=== PATIENT | female | born 1945 | race Caucasian/White ===

== ENCOUNTER 2021-08-15 14:02 | Emergency (ER) | payer MEDICARE ==
[~2021-08-15] VITALS: Ht 154.9 cm; Wt 77.1 kg
[~2021-08-15 14:02] MED LIST: ASPIRIN EC81 MG PO; CALCIUM600 MG PO; CIPRO500 MG PO; CYMBALTA20 MG PO; DAILY VITAMIN1 EAC2 PO; HYOSCYAMINE0.125 MG PO; LEXAPRO20 MG PO; LIPITOR40 MG PO; LISINOPRIL5 MG PO; MONTELUKAST SOD10 MG PO; NORCO 5-325 TA1 EACH PO; OMEPRAZOLE20 MG PO; PAROXETINE HCL40 MG PO; PROTONIX20 MG PO; PYRIDIUM200 MG PO; VITAMIN D250000 UNIT PO; VITAMIN D31000 UNI1 PO; WELLBUTRIN SR100 MG PO
[2021-08-15] MEDS ORDERED: BUPROPION HCL100 M1 PO (14:30)
[2021-08-15] MEDS ORDERED: FAMOTIDINE20 MG PO (14:31)
[2021-08-15] MEDS ORDERED: PANTOPRAZOLE SO40 MG PO (14:48)
[2021-08-15] MEDS ORDERED: ONDANSETRON ODT8 MG PO (16:58)
== END 2021-08-15 17:22 | disposition home or self-care (01) ==
LOC: ED 14:02
DX: K29.00 Acute gastritis without bleeding (principal); Z88.2 Allergy status to sulfonamides; Z88.8 Allergy status to other drugs, medicaments and biological substances; Z91.040 Latex allergy status; Z79.899 Other long term (current) drug therapy
CPT/HCPCS: 36415; 80053; 81001; 83690; 85025; 96374; 99284-25; J2405

== ENCOUNTER 2021-08-17 19:32 | Emergency (ER) | payer MEDICARE ==
[~2021-08-17] VITALS: Ht 154.9 cm; Wt 81.7 kg
[~2021-08-17 19:32] MED LIST changes: +BUPROPION HCL100 M1 PO; +FAMOTIDINE20 MG PO; +ONDANSETRON ODT8 MG PO; +PANTOPRAZOLE SO40 MG PO
--- OUTSIDE RECORDS SUMMARY | 2021-08-17 19:38 | XMS ---
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 Loly has no Care Guidelines for this patient. Claudia VISIT COUNT (12 MO.) [facility] NOTE: Visits indicate total known visits. ED/C VISIT TRACKING (12 MO.) [facility] COMPLAINT: - ABDOMINAL PAIN 08/15/2021 14:03 [facility] TYPE: Emergency COMPLAINT: - VOMITING, ABD PAIN INPATIENT VISIT TRACKING (12 MO.) No inpatient visits to display in this time frame [email or web address]
[2021-08-17] MEDS ORDERED: FAMOTIDINE20 MG PO (19:57)
[2021-08-17] MEDS ORDERED: ONDANSETRON ODT4 MG PO (23:03)
== END 2021-08-17 23:46 | disposition home or self-care (01) ==
LOC: ED 19:32
DX: R10.11 Right upper quadrant pain (principal); R10.12 Left upper quadrant pain; Z88.2 Allergy status to sulfonamides; Z88.8 Allergy status to other drugs, medicaments and biological substances; Z91.040 Latex allergy status; Z88.1 Allergy status to other antibiotic agents; Z79.899 Other long term (current) drug therapy
CPT/HCPCS: 36415; 74177; 80053; 83605; 83690; 85025; 96375; 96376; 99284-25; A9270; J2270; J2405; J7030

== ENCOUNTER 2021-08-18 21:06 | Inpatient (IN) | payer MEDICARE ==
[~2021-08-18] VITALS: Ht 154.9 cm; Wt 84.5 kg
[~2021-08-18 21:06] MED LIST changes: +ONDANSETRON ODT4 MG PO
--- OUTSIDE RECORDS SUMMARY | 2021-08-18 21:12 | XMS ---
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 Claudia VISIT COUNT (12 MO.) 3 [facility] TOTAL 3 NOTE: Visits indicate total known visits. ED/UCC VISIT TRACKING (12 MO.) 08/18/2021 21:06 [facility] [place] TYPE: Emergency COMPLAINT: - ABDOMINAL PAIN 08/17/2021 19:32 [facility] [place] TYPE: Emergency COMPLAINT: - ABDOMINAL PAIN 08/15/2021 14:03 [facility] [place] TYPE: Emergency COMPLAINT: - VOMITING, ABD PAIN INPATIENT VISIT TRACKING (12 MO.) No inpatient visits to display in this time frame [email or web address]
--- NOTE | 2021-08-19 05:02 | NUR ---
PATIENT ARRIVED TO THE FLOOR VIA STRETCHER. PATIENT MOVE FROM STRETCHER BY STAFF TO HOSPITAL BED. DAUGHTER PRESENT AT BEDSIDE AND ANSWERS ALL ADMISSION QUESTIONS. PATIENT DOES NOT RESPOND TO QUESTIONING ONLY HOLLERS OUT "LORDY". VITALS TAKEN AND RECORDED. PATIENTS ATTEND IS DRY AT THIS TIME. PATIENT IS ON 3L VIA NC. PATIENTS BED ALARM ON FOR SAFETY. PATIENTS IV INFUSING PER ORDER. PATIENT DENIES ANY PAIN SHAKES HEAD NO WHEN ASKED. PATIENTS PUPILS ARE REACTIVE TO LIGHT. PATIENTS EYES HOWEVER DO NOT TRACK PENLIGHT AND PATIENT DOES NOT FOLLOW INSTRUCTIONS. PATIENT DENIES ANY NEEDS. SIPS OF WATER PROVIDED. PATIENTS DAUGHTER PROVIDED BLANKET.
--- NOTE | 2021-08-19 06:43 | NUR ---
PATIENTS BLOOD DRAWN AND SENT TO LAB. PATIENTS DAUGHTER PRESENT AT BEDSIDE. PATIENT CONTINUES TO SHAKE HEAD YES AND NO TO ANSWER QUESTIONS.
--- NOTE | 2021-08-19 07:40 | NUR ---
REPORT RECEIVED FROM SONIA OROURKE. PT AWAKE AND ORIENTED TO PLACE SELF AND FAMILY. PT CRYING OUT "OH MY" OVER AND OVER. PT WIDE EYED AND DOES NOT LOOK AT OTHERS BUT IS GAZING DISTANTLY. PT DENIES HEAD PAIN, CHEST PAIN AND ABDOMINAL PAIN INITIALLY. REPORTS NAUSEA. MEDICATION GIVEN. PT LATER CONFIRMS ABDOMINAL PAIN. PT DIAPHORETIC AND TWITCHING. PT VERY RESTLESS IN BED. WELFARE SERVICE AIDE (NARGIS) AND CORPORATE COMMUNICATIONS INTERN (ELLIOTT) TO BEDSIDE TO EVALUATE PT. MEDICATIONS REVIEWED. PTS DAUGHTER STATES PT HAS BEEN ACTING LIKE THI FOR "NINE DAYS." DR PETERSEN CALLED BY SONIA OROURKE, AND UPDATED, NO NEW ORDERS AT THIS TIME. DR PETERSEN STATES HE WILL BE IN TO EVALUATE PT. NO ADDITIONAL CONCERNS AT THIS TIME. BED RAILS UP. CALL LIGHT WITHIN REACH. FAMILY AT BEDSIDE.
--- NOTE | 2021-08-19 07:59 | NUR ---
CALL TO DR. PETERSEN THAT INITIAL LAB WERE KCL 7.[address] PETERSEN INDICATED THAT HE WANTED A FRESH LAB DRAW AND TO MAKE SURE IT WAS NOT FROM THE ARM THAT HAD IVF INFUSING. CALL BACK TO DARREN IN THE LAB TO LET HER KNOW.
--- NOTE | 2021-08-19 08:35 | NUR ---
SONIA GALLAGHER TO BEDSIDE TO ATTEMPT ADDITIONAL IV START. 20G STARTED PER PROTOCOL TO RIGHT AC, BLOOD RETURN NOTED. REPEAT LABS DRAWN PER MD ORDER. PT REPEATADLY STATING "OH, LORD HELP ME" AND "OH LORDY HELP ME" AND CRYING OUT. PT ORIENTED TO PLACE, DATE, SITUATION, SELF AND SURROUNDINGS. PT DOES NOT MAKE EYE CONTACT. EYES GAZING INTO THE DISTANCE. PT PALE AND DIAPHORETIC. MOIST BREATH SOUNDS NOTED. IV FLUIDS STOPPED TEMPORARRLY. DR PETERSEN CALLED AND UPDATED, STATES TO TRANSFER PT TO CRITICAL CARE. REPORT GIVEN TO SONIA SHARP. PT TRANSFERED TO CRITICAL CARE. FAMILY ACCOMANYING PT.
--- NOTE | 2021-08-19 08:42 | NUR ---
CALL TO [facility] TO TRANSFER PATIENT TO CCU.
--- NOTE | 2021-08-19 08:48 | NUR ---
pt arrived to ccu with housekeeping supervisor hotel and primary rn. pt pale, moaning out. heart rate in the 80s. spo2 = 94% on 4 l nc. lungs sound wet with expiratory wheeze noted. Skin is pale. pt alert and oreiented time 4. pt cannot discribe pain in any location but says "i feel sick. Lord please help me" and is crying out. pupils air pin point, but reactive. pt now on awake overnight monitor.Spo2 = 93 % on room air.
--- NOTE | 2021-08-19 09:06 | NUR ---
hernandez inserted. Chest xray completed. Dr Burdick in room to assess PT. respiratory therapy called at this time to do ekg.
--- NOTE | 2021-08-19 09:45 | NUR ---
BICARB NOW INFUSING. INSULIN IV BOLUS GIVEN, AMP OF D50 GIVEN, AND CALCIUM CARB GIVEN. ONE TIME DOES OF 0.5 MG OF ATIVAN GIVEN. PT NOW NOT THRASHING. BREATHING REMAINS LABORED, BELLY AND STERNAL BREATHING NOTED. RT IN ROOM TO GIVE BREATHING TX. ULTRA SOUND GUIDED IV INSERTED BY SONIA GHOTRA AT THIS TIME.
--- NOTE | 2021-08-19 10:37 | NUR ---
HOUR LONG NEBULIZER CONTINUES TO INFUSE. RESPIRATIONS LABORED, UPPER AIRWAYS STILL SOUND WET. BREATHING LABORED. IV FLUIDS AND ABX INFUSING. DAUGHTER REMAINS AT BEDSIDE.
--- NOTE | 2021-08-19 11:00 | NUR ---
HOUR LONG BREATHING TX COMPLETED. REPEAT EKG COMPLETED. HUSNAMD NOW AT BEDSIDE. PT SNORING, BREATHING LABORED RR=25. SPO2 = 94% AT 4 L OM. HEART RATE 100-110 AT REST.
--- NOTE | 2021-08-19 14:33 | NUR ---
PT BECOMING MORE ORIENTED. NO LONGER THRASHING ARMS AND LEGS OR CALLING OUT. STATES SHE IS FEELING BETTER. HEART RATE IN THE 60S. RESPIRATIONS LESS LABORED. AT BEDSIDE. BICARB INFUSING. LAB IN ROOM FOR DRAW. CALL LIGHT WITHIN REACH. REMAINS AT BEDSIDE.
--- NOTE | 2021-08-19 15:41 | NUR ---
CRITICAL LACTIC ACID REPORTED TO DR PETERSEN. BLOOD DRAWN AGAIN AND SENT TO LAB.
--- NOTE | 2021-08-19 15:54 | NUR ---
ASSESSMENT COMPLETED. PT FEELS WARM TO TOUCH. AXILLARY TEMP OF 99.9 AT THIS TIME. HEART RATE IN THE 90S. LUNGS SOUND COARSE, BUT LESS WET THAN EARLIER ASSESSMENT. PT ABLE TO FOLLOW COMMANDS TO ASSIST WITH BED CHANGE. PT INCONTINENT OF BOWELS. PERICARE PROVIDED. PT REPOSITIONED IN BED. FAMILY AT BEDSIDE.
--- NOTE | 2021-08-19 17:26 | EKG ---
[facility] [address] [facility] [place] [address] Signed Normal sinus rhythm Incomplete left bundle branch block Nonspecific ST and T wave abnormality Abnormal ECG No previous ECGs available Confirmed by RADHA PETERSEN MD ([id number]) on 08/19/2021 5:26:30 PM Electronically Signed By: RADHA PETERSEN MD 08/19/21 1726 PATIENT NAME: BRODERICK AKBAR Electrocardiogram DATE OF : 43 PHYSICIAN: RADHA PETERSEN MD REPORT #: [id number] REPORT IS CONFIDENTIAL AND NOT TO BE RELEASED WITHOUT AUTHORIZATION
--- NOTE | 2021-08-19 17:27 | EKG ---
[facility] [address] [facility] [place] [address] Signed Wide QRS rhythm Left bundle branch block Abnormal ECG When compared with ECG of 19-AUG-2021 00:18, (Unconfirmed) Wide QRS rhythm has replaced Sinus rhythm Confirmed by RADHA PETERSEN MD ([id number]) on 08/19/2021 5:26:59 PM Electronically Signed By: RADHA PETERSEN MD 08/19/21 1727 PATIENT NAME: BRODERICK AKBAR JOSE Electrocardiogram DATE OF : 43 PHYSICIAN: RADHA PETERSEN MD REPORT #: [id number] REPORT IS CONFIDENTIAL AND NOT TO BE RELEASED WITHOUT AUTHORIZATION
--- NOTE | 2021-08-19 17:27 | EKG ---
[facility] [address] [facility] [place] [address] Signed Sinus tachycardia Incomplete left bundle branch block ST \T\ T wave abnormality, consider inferior ischemia Abnormal ECG When compared with ECG of 19-AUG-2021 09:07, (Unconfirmed) Sinus rhythm has replaced Wide QRS rhythm Confirmed by RADHA PETERSEN MD ([id number]) on 08/19/2021 5:27:22 PM Electronically Signed By: RADHA PETERSEN MD 08/19/21 1727 PATIENT NAME: BRODERICK AKBAR JOSE Electrocardiogram DATE OF : 43 PHYSICIAN: RADHA PETERSEN MD REPORT #: [id number] REPORT IS CONFIDENTIAL AND NOT TO BE RELEASED WITHOUT AUTHORIZATION
--- NOTE | 2021-08-19 18:00 | NUR ---
PT IN IMAGING. HEART RATE UP INTO THE 120-130 IN ATRIAL FIBRILLATION. THIS RN IN IMAGING WITH PT. STUDY ALMOST COMPLETED. PT TRANSPORTED BACK TO CCU BY THIS RN. PT HAD ANOTHER LOOSE STOOL. HEART RATE MAINTAINED IN THE 120S. 2.5 MG OF IV METOPROLOL GIVEN. HEART RATE REMAINS IN THE 120S. EKG ORDERED BY DR PETERSEN AT THIS TIME.
--- NOTE | 2021-08-19 21:28 | NUR ---
PT TAKEN TO DO ANOTHER SCAN, RN ACCOMPAINED PT AND TECH, BROUGHT PT BACK, BED PLUGGED IN, BED ALARM ON, BED IN LOWEST POSITION, CALL LIGHT WITHIN REACH, FAMILY UPDATED ON PLAN OF CARE, FAMILY AT BEDSIDE WITH PT
--- NOTE | 2021-08-19 22:07 | NUR ---
PT RESTING IN BED, FORGETFULL, OXYMASK APPLIED AT 2 L, FAMILY AT BEDSIDE STAYING THE NIGHT WITH PT, FAMILY TAUGHT TO NOT ALLOW PT OUT OF BED, AND IF SHE WANTS WATER TO PLEASE GET RN OR TO SIT HER UP HIGH IN BED AND ALLOW SMALL SIPS WELL ENSURE PT IS AWAKE, EYES OPEN, AND ABLE TO FOLLOW COMMANDS FIRST. RN DEMONSTRATED AND FAMILY WAS ABLE TO TEACH BACK
--- NOTE | 2021-08-19 23:04 | NUR ---
PT MOANING IN BED, RESTLESS, GRIMACING, SPOKE TO DR PETERSEN PRIOR REGARDING PAIN MEDICATION, HE STATED DUE TO HER CONFUSION HE DOESN'T WANT TO GIVE HER PAIN MEDS. PT REPOSITIONED, FAMILY AT BEDSIDE HOLDING HER HAND AND RUBBING HER ARMS/LEGS, WARM BLANKET APPLIED
--- NOTE | 2021-08-20 02:35 | NUR ---
PT IN BED, MOANING AND RESTLESS, FAMILY AT BEDSIDE, WILL SPEAK TO DAY SHIFT ABOUT OPTIONS FOR PAIN CONTROL WITH PT, DUE TO PAIN PT IS UNABLE TO SLEEP. VITALS WNL, GOOD URINE OUTPUT, WILL CONTINUE TO MONITOR
--- NOTE | 2021-08-20 03:31 | NUR ---
PT WAS STILL AWAKE, RN ASKED PTS SON IF SHE ENJOYS MUSIC OR DOES ANYTHING AT NIGHT TO HELP HER SLEEP. SONS STATES SHE SLEEPS WITH WINDOW OPEN TO HEAR THE [place] OUTSIDE. RN PLACED CLIP FAN ON PTS BED TO CREATE SOME "WHITE NOISE". APPEARS TO HAVE HELPED PT SLEEP MORE, WILL CONTINUE TO MONITOR AND BRAINSTORM NON-MEDICATION IDEAS TO ASSIST PT WITH REST
--- NOTE | 2021-08-20 03:45 | NUR ---
PT WOKE UP FOR A FEW MOMENTS, DRANK A FEW SIPS OF WATER AND HAD A COUPLE BITES OF JELLO, BEGAN DRIFTING OFF TO SLEEP AGAIN.
--- NOTE | 2021-08-20 06:21 | NUR ---
PT RESTING, SLEEPING DEEPLY, NO MOANING OR RESTLESSNESS NOTED, HOURLY URINE OUTPUT SLOWING DOWN, AM MEDS ADMINISTERED, LABS REVIEWED, PLANNING ON ADDITIONAL SCAN TO BE DONE THIS AM, AWAITING DAY SHIFT TO GIVE REPORT, PTS SON AND SONS REMAIN AT BEDSIDE, ENCOURAGING REST FOR PT AND FAMILY.
--- NOTE | 2021-08-20 07:28 | CONS ---
[facility] [address] [place], [place] [address] Signed DATE OF CONSULTATION: 08/19/2021 CHIEF COMPLAINT: Epigastric abdominal pain. HISTORY OF PRESENT ILLNESS: Broderick is a 75-year-old female who I have known from the past for endoscopy. I also know her daughter, Monica for endoscopies as well. In the last 7-10 days, Broderick has been to our emergency room about three times. She has noticed increased shortness of breath and dyspnea on exertion with upper abdominal pain. Most of that pain is epigastric and right upper quadrant. Her baseline blood work including the liver and kidneys and so forth were unremarkable. She has also been working with her primary care provider. The CT angiogram of her chest did not show pulmonary embolism, but it did show a rather large aneurysm. The ascending portion 7 cm as it comes down the descending portion of the thoracic aorta, it is 4 cm and extends into the upper abdomen. There was quite a bit of thrombus up and down that aneurysm. The celiac trunk and the SMA; however, are patent. She actually went to see the thoracic surgeon at our [facility]. Our [facility] was not able to help her with her surgery and she had been referred to [place], [place]. With her increasing pain and shortness of breath, she came back to the emergency room, has been admitted to our Internal Medicine Service. Her white count has been increasing and her lactic acid and BMP are quite high. The AST and ALT are also quite high, although the total bilirubin is not particularly concerning at 1.5. She ended up with a gallbladder ultrasound that was unremarkable. Interestingly, she is getting a HIDA scan currently, which I am not sure is going to be of much value. At this point, she clearly has a to and fro murmur and rather significant point of maximal impulse on her heart and it looks like she is actually in heart failure with shock to the liver into her kidneys. Nevertheless, I had been asked to see her as a general surgeon on-call. PAST MEDICAL HISTORY: Depression versus bipolar disorder, thoracic aortic aneurysm, allergic rhinitis, peptic ulcer disease, dilated left and right ventricle, hypothyroidism, migraine headaches, borderline diabetes, and urticaria. PAST SURGICAL HISTORY: Includes upper and lower endoscopies with myself and Dr. Love as well as tonsillectomy, adenoidectomy, and bilateral tubal ligation. SOCIAL HISTORY: She lives with her , Pedro Luis at [phone]. Balaji Guillen is her primary care provider, they prefer the [facility]. FAMILY HISTORY: Electronically Signed By: PATRICIA CURIEL MD 08/20/21 0728 PATIENT NAME: BRODERICK AKBAR CONSULTATION DATE OF : 43 REPORT #: [id number] PHYSICIAN: PATRICIA CURIEL MD PCP: BALAJI GUILLEN PAC REPORT IS CONFIDENTIAL AND NOT TO BE RELEASED WITHOUT AUTHORIZATION [address] [address] Signed Her son of a brain aneurysm at age 30. The entire family is being screened currently. Her maternal aunt had colon cancer and polyps. Her sister also had colon polyps. REVIEW OF SYSTEMS: The patient is cooperative, but not overly talkative at this point due to her abdominal pain and shortness of breath. Her daughter is in the room as well. Not much really to add most of the history was obtained from review of the records. ALLERGIES: Fluoxetine, citalopram, streptomycin, latex, and sulfa. MEDICATIONS: Benadryl, bupropion, duloxetine, and Protonix. PHYSICAL EXAMINATION: VITAL SIGNS: She has been pretty good, but the last set is a little worse with blood pressure 110/33, heart rate 120, respiratory rate 26, and temperature 98.3. She is 94% on 2 L nasal cannula. She is 5 feet 1 inch and 84 kg. GENERAL: Broderick is a 75-year-old female, who just got back from our radiology department and lying supine in her hospital bed. Her daughter Monica is with us. She is alert, awake enough to interact and answer questions appropriately. She is clearly uncomfortable mainly from the abdominal pain. LUNGS: Generally clear to auscultation. HEART: Tachycardic. Her point of maximum impulse is significant. I can hear the to and fro murmur along the left sternal border. ABDOMEN: Obese, but generally soft. No peritonitis. LABORATORY DATA: Her white blood count was 13, is up to 20; her hemoglobin was 11.2, it is now 9.9; and platelets were 234, it is down to 109 and neutrophils are 91. Her BUN is up to 55, her creatinine is up to 2.53, potassium is 4.3, and glucose is 204. Lactic acid is 10.8. Her BNP was 26,861, GGT is 145, total bilirubin is 1.5, AST is 694, ALT is 532, alkaline phosphatase 114, and albumin is 2.1. Urinalysis showed some bacteria, but the leukocyte esterase is negative. RADIOGRAPHIC STUDIES: Multiple studies were performed over the last 10 days or so. She clearly has this rather large 7 cm ascending aortic aneurysm that then tapers to 4 cm as it comes down into the upper abdomen. There is a significant amount of thrombus through that descending thoracic aneurysm. The liver in the gallbladder and common bile duct have been unremarkable. The celiac trunk is patent. The superior mesenteric artery is patent. Right upper quadrant ultrasound was not particularly concerning either. Electronically Signed By: PATRICIA CURIEL MD 08/20/21 0728 PATIENT NAME: BRODERICK AKBAR CONSULTATION DATE OF : 43 REPORT #: [id number] PHYSICIAN: PATRICIA CURIEL MD PCP: BALAJI GUILLEN PAC REPORT IS CONFIDENTIAL AND NOT TO BE RELEASED WITHOUT AUTHORIZATION [facility] [address] [place], [place] [address] Signed ASSESSMENT AND PLAN: Broderick is a 75-year-old female, who appears to be in heart failure with shock liver and kidney from this rather significant 7 cm ascending thoracic arch aneurysm with a to and fro murmur. I think her upper abdominal pain is actually from shock from the liver and the kidneys. At this point it is really not much more I could offer her here in our 25 bed critical access hospital. Unfortunately, with the COVID pandemic, most of our Regional hospitals were quite full. Our [facility] would not be able to handle her surgery. She has been recommended to go to [place], but that would be up to our Hospitalist Service. I have explained this to Broderick and her daughter, they have expressed understanding, agreed with the above plan. They understand this is quite serious and carries with it significant risk of mortality. MD DERICK Figueredo/JESÚSL /[id number] cc: SHANEL Abdullahi MD Patient Chart Copies: BALAJI GUILLEN ANDREW L MD ~ Electronically Signed By: PATRICIA CURIEL MD 08/20/21 0728 PATIENT NAME: BRODERICK AKBAR JOSE CONSULTATION DATE OF : 43 REPORT #: [id number] PHYSICIAN: PATRICIA CURIEL MD PCP: BALAJI GUILLEN REPORT IS CONFIDENTIAL AND NOT TO BE RELEASED WITHOUT AUTHORIZATION
--- NOTE | 2021-08-20 07:55 | NUR ---
IN ROOM FOR ASSESSMENT. PTS SON AND DAUGHTER IN LAW AT BEDSIDE. PT DROWSY AND ORIENTED TIMES THREE. LUNGS ARE DIM IN THE BASES BUT CLEAR IN THE UPPER AIRWAYS. HEART RATE IN THE 70S IN A SINUS RHYTHM. PULSES STRONG IN ALL DISTAL EXTREMITIES. ABDOMEN SOFT. HYPOACTIVE BOWEL TONES NOTED IN ALL FOUR QUADRANTS. PT TENDER UPON PALPATION IN RIGHT UPPER QUADRANT. PT DENIES PAIN, NAUSEA, OR DISCOMFORT AT REST, ONLY STATES THAT SHE IS TIRED. DARK YELLOW URINE IN PINA CATHETER DRAINAGE BAG. PLAN OF CARE FOR DAY ESTABLISHED WITH FAMILY AND PT. ALL QUESTIONS ANSWERED. CALL LIGHT WITHIN REACH. WILL CONTINUE TO MONITOR.
--- NOTE | 2021-08-20 08:30 | NUR ---
TRANSPORTED TO NUCLEAR IMAGING FOR A SCAN ON REPAIRER HAIRSPRING. SCAN WELL TOLERATED BY PT. BACK IN ROOM. PT GIVEN A BED BATH, PINA CARE PROVIDED, AND LINENS CHANGED. PT FOLLOWING COMMANDS AND TOLERATED ACTIVITY IN BED WELL.
--- NOTE | 2021-08-20 09:25 | NUR ---
DR PETERSEN IN TO ASSESS PT. AT BEDSIDE. JVD AND MURMUR NOTED ON ASSESSMENT. PLAN OF CARE DISCUSSED WITH . ALL QUESTIONS ANSWERED. IV ABX INFUSING. CALL LIGHT WITHIN REACH. WILL CONTINUE TO MONITOR.
--- NOTE | 2021-08-20 10:42 | NUR ---
PT SITTING UP IN BED. GIVEN ORAL POTASSIUM AND IV LASIX AT THIS TIME (SEE EMAR). BRUSHED PTS HAIR. DAUGHTER AND REMAIN AT BEDSIDE. WILL CONTINUE TO MONITOR.
[2021-08-20] MEDS ORDERED: LISINOPRIL5 MG PO (12:45)
--- NOTE | 2021-08-20 12:49 | NUR ---
PT'S FAMILY GIVEN UPDATE ON PLAN OF CARE. ALL QUESTIONS ANSWERED.
--- NOTE | 2021-08-20 12:56 | NUR ---
PT LAYING IN BED, FAMILY AT BEDSIDE. PT RESPONDS TO MY VOICE AND THEN SEEMS TO DRIFT OFF. PT WAITING TRANSPORT TO [facility] [place]. EXPRESSED THEIR APPRECIATION FOR THE CARE PT HAS RECEIVED, ESPECIALLY FROM DR PETERSEN AND LILA MARTINEZ'S RN. GAVE BLESSING AND ENCOURAGEMENT AND WILL FOLLOW NEEDED
--- NOTE | 2021-08-20 14:30 | NUR ---
medications adminsitered. Pt given an ensure to drink. Assisted with repositioning in the bed. Call light within reach. and daughter remain at Pt bedside.
--- NOTE | 2021-08-20 16:36 | NUR ---
ASSESSMENT COMPLETED. PT DROWSY, SLEPT THROUGH MOST OF ASSESSMENT. FINE CRACKLES AUSCULATED IN BOTH LOWER LUNG BASES, WORSE IN THE RIGHT BASE. UPPER AIRWAYS CLEAR. HEART RATE IN THE 80S AT REST. RESPIRATIONS ARE LABORED IN THE MID 20S AT REST. LARGE AMOUNTS OF DILUTE URINE IN PINA CATHETER. DUAGHTER AND GRANDDAUGHTER AT BEDSIDE. CALL LIGHT WITHIN REACH. WILL CONTINUE TO MONITOR.
--- NOTE | 2021-08-20 17:33 | NUR ---
REPOSITIONED PT IN THE BED. GIVEN ENSURE. ORAL CARE PROVIDED. PARTIAL DENTURES REMOVED AND GIVEN TO DAUGHTER. PT CONTINUES TO MAKE COPIOUS AMOUNTS OF URINE.
--- NOTE | 2021-08-20 18:20 | NUR ---
lab in Room at this time for blood draw
--- NOTE | 2021-08-20 19:28 | NUR ---
REPORT RECEIVED FROM BLAISE RN, WILL CONTINUE PLAN OF CARE.
--- NOTE | 2021-08-20 20:20 | NUR ---
PT LAYING IN BED AWAKE AT THIS TIME. PT SLIGHTLY CONFUSED BUT ORIENTED TO SELF, LOCATION, AND FOLLOWS COMMANDS. PT ON 3L O2 OXYMASK AT THIS TIME, SPO2 96-99%. PT VITALS TAKEN AT THIS TIME AND ASSESSMENT COMPLETED (SEE CHART). PT LUNGS CLEAR IN UPPER LOBES AND DIMINISHED IN THE BASES BILATERALLY, MURMUR HEARD UPON AUSCULTATION. PT BOWEL TONES ACTIVE, ABDOMEN SOFT/ TENDER TO THE TOUCH. PT NOTED TO BE MOANING AND CONFIRMS SHE HAS PAIN WHEN ASKED AND POINTS TO HER ABDOMEN. PT RADIAL PULSES +2, PEDAL PULSES +1. PT PROVIDED WITH AN ICE PACK TO HELP ALLEVIATE THE PAIN. SCHEDULED MEDICATIONS ADMINISTERED AFTERWARDS (SEE MAR). PT ABLE TO TAKE PO MEDS AND DRINK A CLEAR ENSURE WITHOUT DIFFICULTY. PT NOW RESTING IN BED ON 3L O2 OXYMASK, IV MAGNESIUM INFUSING (SEE MAR). NO FURTHER NEEDS REPORTED AT THIS TIME, PT'S FAMILY IN ROOM AT THE BEDSIDE, CALL LIGHT IN REACH, BED IN LOWEST POSITION, WILL CONTINUE PLAN OF CARE.
--- NOTE | 2021-08-20 21:00 | NUR ---
DR. PETERSEN NOTIFIED OF PT'S DISCOMFORT AND ABDOMINAL PAIN AT THIS TIME. NEW ORDERS TO BE PLACED FOR PRN OXYCODONE (SEE MAR), WILL CONTINUE PLAN OF CARE.
--- NOTE | 2021-08-20 21:25 | NUR ---
PT LAYING IN BED MOANING AT THIS TIME AND REPORTS PAIN. PT HEAD OF BED ELEVATED, PRN OXYCODONE ADMINISTERED ORDERED (SEE AUG). PT HOB LOWERED BACK, PT NOW RESTING. IV MAGNESIUM COMPLETED, PT SALINE LOCKED. PT PROVIDED WITH JELLO AT THIS TIME PER HER REQUEST. PT'S SON IN ROOM ASSISTING PT IN EATING JELLO, WILL CONTINUE PLAN OF CARE.
--- NOTE | 2021-08-20 21:42 | NUR ---
PT LAYING IN BED RESTING AT THIS TIME ON 3L O2 OM, SPO2 92%. IV ABX STARTED AND NOW INFUSING ORDERED (SEE MAR). WILL CONTINUE PLAN OF CARE.
--- NOTE | 2021-08-20 23:04 | NUR ---
PT SLEEPING AT THIS TIME ON ROOM AIR, SPO2 90%. IV ABX INFUSING ORDERED. PT IN NO APPARENT DISTRESS AT THIS TIME, RESPIRATIONS EVEN AND UNLABORED, PT LEFT UNDISTURBED. PINA DRAINED OF 180ML AT THIS TIME. WILL CONTINUE PLAN OF CARE, CALL LIGHT IN REACH, BED IN LOWEST POSITION, PT'S SON AND DAUGHTER IN LAW IN ROOM AT THE BEDSIDE.
--- NOTE | 2021-08-21 00:20 | NUR ---
PT LAYING IN BED SLEEPING AT THIS TIME ON 3L O2 OXYMASK IV ABX INFUSING ORDERED. VITALS TAKEN AT THIS TIME (SEE CHART), PT AWOKE DURING THIS TIME. PT STILL CONFUSED BUT ORIENTED TO SELF AND LOCATION AND FOLLOWS DIRECTIONS. SCHEDULED MEDICATIONS ADMINISTERED (SEE MAR). PT ABLE TO TAKE PO MEDS WITHOUT DIFFICULTY. PT ASSESSMENT COMPLETED AT THIS TIME (SEE CHART). AFTERWARDS PT'S HEAD OF BED WAS DECREASED AND PT RETURNED BACK TO SLEEP. NO FURHTER NEEDS ASSESSED AT THIS TIME, WILL CONTINUE PLAN OF CARE. CALL LIGHT IN REACH, BED IN LOWEST POSITION, IV ABX INFUSING, PT'S SON AND DAUGHTER IN LAW IN THE ROOM AT THE BEDSIDE.
--- NOTE | 2021-08-21 01:20 | NUR ---
PT LAYING IN BED SLEEPING ON 3L O2 OXYMASK, SPO2 93%. IV ABX INFUSING ORDERED. RESPIRATIONS NOTED, PT IN NO APPARENT DISTRESS AND WAS LEFT UNDISTURBED, NO FURTHER NEEDS ASSESSED. WILL CONTINUE PLAN OF CARE. CALL LIGHT IN REACH, BED IN LOWEST POSITION, FAMILY IN ROOM AT THE BEDSIDE.
--- NOTE | 2021-08-21 02:33 | NUR ---
PT LAYING IN BED AT THIS TIME SLEEPING ON ROOM AIR. IV ABX COMPLETE AT THIS TIME, PT SALINE LOCKED. PT PLACED BACK ON 3L O2 OXYMASK PT OCCASIONALLY DESATURATES TO 86-87% ON ROOM AIR IN HER SLEEP. PT SPO2 NOW AT 95%. PT IN NO APPARENT DISTRESS AT THIS TIME, NO FURTHER NEEDS ASSESSED, PINA DRAINING URINE, WILL CONTINUE PLAN OF CARE. CALL LIGHT IN REACH, BED IN LOWEST POSITION, PT'S FAMILY IN ROOM AT THE BEDSIDE.
--- NOTE | 2021-08-21 03:15 | NUR ---
PT NOTED SPO2 NOTED TO BE 87%. PT LAYING IN BED SLEEPING, OXYMASK AWAY FROM FACE. OXYMASK PLACED BACK ON PT AT 3L O2 NC, SPO2 NOW 95%. PT AWOKE BRIEFY AT THIS TIME AND REPORTS NO FURTHER NEEDS WHEN ASKED. CALL LIGHT IN REACH, BED IN LOWEST POSITION, WILL CONTINUE PLAN OF CARE.
--- NOTE | 2021-08-21 04:40 | NUR ---
PT LAYING IN BED AWAKE AND WAS ATTEMPTING TO TURN IN BED AND WAS MOANING IN PAIN. PT UNABLE TO QUANTIFY PAIN BUT STATED HER ABDOMEN AND "PIDDLE" POINTING TO HER PINA HURT. PINA ASSESSED AND IS DRAINING. PT NOTED TO BE INCONTINENT OF STOOL, PERICARE DONE AND NEW PAD AND ATTENDS IN PLACE. PT THEN SAT UP IN BED. VITALS TAKEN (SEE CHART). PRN OXYCODONE THEN ADMINISTERED (SEE MAR). PT ASSESSMENT THEN COMPLETED (SEE CHART). PT REMAINS ON 3L O2 NC, SPO2 95-97%. PT SLIGHTLY CONFUSED/FORGETFUL BUT REMAINS AWAKE, IS ORIENTED X3, ANSWERS QUESTIONS AND FOLLOWS DIRECTION. CONSENT FORMS FOR TRANSFER SIGNED AT THIS TIME. PT REPORTS NO FURTHER NEEDS AT THIS TIME AND IS NOW RESTING IN BED. CALL LIGHT IN REACH, BED IN LOWEST POSITION, PT'S FAMILY IN ROOM, WILL CONTINUE PLAN OF CARE.
--- NOTE | 2021-08-21 05:44 | NUR ---
PT LAYING IN SLEEPING AT THIS TIME ON 3L O2 OXYMASK. PT IN NO APPARENT DISTRESS, SPO2 100%. SCHEDULED IV ABX STARTED AND NOW INFUSING (SEE MAR). NO FURTHER NEEDS ASSESSED AT THIS TIME, WILL CONTINUE PLAN OF CARE. CALL LIGHT IN REACH, BED IN LOWEST POSITION, PT'S FAMILY IN ROOM AT THE BEDSIDE.
--- NOTE | 2021-08-21 06:15 | NUR ---
PT LAYING IN BED RESTING AT THIS TIME ON 3L O2 NC, SPO2 97-100%, IV ABX INFUSING ORDERED. SCHEDULED LOPRESSOR ADMINISTERED AFTER TAKING VITALS (SEE MAR). PT AWOKE BRIEFLY AND REPORTED NO FURTHER NEEDS WHEN ASKED. PINA EMPTIED AT THIS TIME. NO FURTHER NEEDS ASSESSED AT THIS TIME, WILL CONTINUE PLAN OF CARE. CALL LIGHT IN REACH, BED IN LOWEST POSITION, PT'S FAMILY IN ROOM AT THE BEDSIDE.
--- NOTE | 2021-08-21 06:26 | NUR ---
DR. PETERSEN NOTIFIED OF PT TRANSFER, [facility] ETA, AND MORNING LABS, WILL CONTINUE PLAN OF CARE.
--- NOTE | 2021-08-21 06:43 | NUR ---
REPORT CALLED TO SONIA ENRIQUE AT [facility], WILL CONTINUE PLAN OF CARE.
--- NOTE | 2021-08-21 07:21 | NUR ---
REPORT GIVEN TO [facility] RN, PT AWAKE IN BED ON 3L O2 NC, IV ZOSYN INFUSING ORDERED. PT TRANSFERED TO [facility] TO CONTINUE PLAN OF CARE, PT LEFT THE CCU AT 0721.
--- NOTE | 2021-08-22 15:55 | EKG ---
[facility] [address] [place] [address] Signed Atrial flutter with variable AV block Incomplete left bundle branch block ST \T\ T wave abnormality, consider inferior ischemia Abnormal ECG When compared with ECG of 19-AUG-2021 10:48, Atrial flutter has replaced Sinus rhythm ST now depressed in Inferior leads ST now depressed in Anterior leads Confirmed by RADHA PETERSEN MD ([id number]) on 08/22/2021 3:55:49 PM Electronically Signed By: RADHA PETERSEN MD 08/22/21 1555 PATIENT NAME: BRODERICK AKBAR JOSE Electrocardiogram DATE OF : 43 PHYSICIAN: RADHA PETERSEN MD REPORT #: [id number] REPORT IS CONFIDENTIAL AND NOT TO BE RELEASED WITHOUT AUTHORIZATION
== END 2021-08-21 07:21 | disposition short-term general hospital (02) | DRG 291 ==
LOC: ED 21:06 → MS 21:07 → CCU 08-19 08:45
PROVIDERS: ADMIT Internal Medicine; ATTEND Internal Medicine
DX: I50.23 Acute on chronic systolic (congestive) heart failure (principal); G93.41 Metabolic encephalopathy; N17.9 Acute kidney failure, unspecified; E87.2 Acidosis; B17.9 Acute viral hepatitis, unspecified; R65.10 Systemic inflammatory response syndrome (SIRS) of non-infectious origin without acute organ dysfunction; E46 Unspecified protein-calorie malnutrition; I48.92 Unspecified atrial flutter; I35.1 Nonrheumatic aortic (valve) insufficiency; I11.0 Hypertensive heart disease with heart failure; I71.2 Thoracic aortic aneurysm, without rupture; E03.9 Hypothyroidism, unspecified; Z20.822 Contact with and (suspected) exposure to COVID-19; G43.909 Migraine, unspecified, not intractable, without status migrainosus; L30.9 Dermatitis, unspecified; Z68.34 Body mass index [BMI] 34.0-34.9, adult; J30.9 Allergic rhinitis, unspecified; R73.03 Prediabetes; I48.0 Paroxysmal atrial fibrillation; E87.5 Hyperkalemia; D69.59 Other secondary thrombocytopenia; E86.0 Dehydration; F31.9 Bipolar disorder, unspecified; Z98.51 Tubal ligation status; Z87.11 Personal history of peptic ulcer disease; Z90.89 Acquired absence of other organs; Z98.890 Other specified postprocedural states; Z87.440 Personal history of urinary (tract) infections; Z88.2 Allergy status to sulfonamides; Z91.040 Latex allergy status; Z88.8 Allergy status to other drugs, medicaments and biological substances
CPT/HCPCS: 36415; 70450; 71045; 71275; 74174; 74175; 74176; 76705; 78226; 80048; 80053; 80076; 81001; 82553; 82570; 82803; 82977; 83605; 83690; 83735; 83880; 84300; 84439; 84443; 84484; 84550; 85025; 85610; 85730; 86705; 86709; 86803; 87088; 93005; 93010; 93306; 94644; 96375; 96376; A9537; C9113; C9803; G0378; G0480; J1170; J1815; J1940; J2060; J2405; J2543; J3475; J7030; J7070; J7121; Q9967; U0003